=== PATIENT | male | born 1940 | race African-American/Black ===

== ENCOUNTER → 2017-04-17 | Outpatient (CLI) | payer MEDICARE | END | disposition home or self-care (01) | LOC: PCVCIMAG 08:50 | DX: I73.9 Peripheral vascular disease, unspecified (principal); R00.1 Bradycardia, unspecified; I25.10 Atherosclerotic heart disease of native coronary artery without angina pectoris; I10 Essential (primary) hypertension; Z72.0 Tobacco use; Z79.82 Long term (current) use of aspirin | CPT/HCPCS: 93005; 93925; G0463 ==

== ENCOUNTER → 2018-08-28 | Outpatient (CLI) | payer MEDICARE ==
--- NOTE | 2018-08-28 11:18 | PCVCIMAG ---
EXAM: BILATERAL SUPERFICIAL VENOUS DUPLEX INDICATION: Leg pain and swelling. FINDINGS: Right leg: No thrombus in the common femoral, main femoral, or popliteal veins. These veins are compressible. Right Great Saphenous Vein: At the saphenofemoral junction the diameter is 5.3 mm, in the mid thigh it is 3.2 mm, and in the calf it is 2.3 mm. There is not significant venous insufficiency/reflux throughout. Venous insufficiency/reflux duration is 0 seconds. Right Small Saphenous Vein: At the saphenopopliteal junction the diameter is 2.7 mm, and in the calf it is 1.6 mm. There is not significant venous insufficiency/reflux throughout. Venous insufficiency/reflux duration is 0 seconds. There is a cranial extension present. Left leg: No thrombus in the common femoral, main femoral, or popliteal veins. These veins are compressible. Left Great Saphenous Vein: At the saphenofemoral junction the diameter is 8.8 mm, in the mid thigh it is 5.5 mm, and in the calf it is 2.4 mm. There is not significant venous insufficiency/reflux throughout. Venous insufficiency/reflux duration is 0 seconds. Left Small Saphenous Vein: At the saphenopopliteal junction the diameter is 2.6 mm, and in the calf it is 2.6 mm. There is not significant venous insufficiency/reflux throughout. Venous insufficiency/reflux duration is 0 seconds. There not a cranial extension present. IMPRESSION: Right Great Saphenous Vein: No significant venous insufficiency/reflux is present as noted above. Right Small Saphenous Vein: No significant venous insufficiency/reflux is present as noted above. Left Great Saphenous Vein: No significant venous insufficiency/reflux is present as noted above. Left Small Saphenous Vein: No significant venous insufficiency/reflux is present as noted above. Incidental note is made of a 1.5 x 3.2 x 4.9 cm left popliteal cyst. LOC:[id number]
== END | disposition home or self-care (01) ==
LOC: PCVCIMAG 09:52
PROVIDERS: ATTEND Internal Medicine Cardiovascular Disease
DX: M79.89 Other specified soft tissue disorders (principal); R20.0 Anesthesia of skin
CPT/HCPCS: 93970

== ENCOUNTER → 2018-09-18 | Outpatient (CLI) | payer MEDICARE | LOC: PCVCCLINIC 10:00 | PROVIDERS: ATTEND Internal Medicine Cardiovascular Disease | DX: I10 Essential (primary) hypertension (principal) | CPT/HCPCS: 36415 ==

== ENCOUNTER → 2018-10-01 | Outpatient (CLI) | payer MEDICARE | END | disposition home or self-care (01) | LOC: PCVCCLINIC 15:31 | PROVIDERS: ATTEND Internal Medicine Cardiovascular Disease | DX: I25.10 Atherosclerotic heart disease of native coronary artery without angina pectoris (principal); I10 Essential (primary) hypertension; I60.9 Nontraumatic subarachnoid hemorrhage, unspecified; E78.00 Pure hypercholesterolemia, unspecified; Z79.82 Long term (current) use of aspirin | CPT/HCPCS: 93005; G0463 ==